=== PATIENT | female | born 1960 | race Caucasian/White ===

== ENCOUNTER 2018-04-29 19:38 | Emergency (ER) | payer OTHER, MEDICAID ==
[~2018-04-29] VITALS: Ht 165.1 cm; Wt 91.2 kg
[2018-04-29 19:47] VITALS: Ht 165.1 cm; Wt 91.2 kg
[2018-04-29 21:04] VITALS: BP 129/71
== END 2018-04-29 21:05 | disposition home or self-care (01) ==
LOC: ED 19:38
DX: M25.561 Pain in right knee (principal); M19.90 Unspecified osteoarthritis, unspecified site
CPT/HCPCS: J1885; Q0092

== ENCOUNTER 2018-05-06 15:09 | Emergency (ER) | payer OTHER, MEDICAID ==
[~2018-05-06] VITALS: Ht 152.4 cm; Wt 95.7 kg
[2018-05-06 15:21] VITALS: Ht 152.4 cm; Wt 95.7 kg
[2018-05-06 16:45] VITALS: BP 134/82
== END 2018-05-06 16:45 | disposition home or self-care (01) ==
LOC: ED 15:09
DX: J18.9 Pneumonia, unspecified organism (principal)
CPT/HCPCS: J0696

== ENCOUNTER 2018-05-09 14:52 | Inpatient (IN) | payer OTHER, MEDICAID ==
[~2018-05-09] VITALS: Ht 152.4 cm; Wt 94.3 kg
[2018-05-09 15:00] VITALS: Ht 152.4 cm; Wt 94.3 kg
[2018-05-09 17:22] LABS: BASOPHIL % 0.4 % (0-2); RED CELL DISTRIBUTION WIDTH 14.3 % (11.5-14.5)
[2018-05-09 17:31] LABS: CALCIUM 8.8 mg/dL (8.5-10.1); CARBON DIOXIDE 28.1 mmol/L (21-32); CHLORIDE SERUM 104 mmol/L (98-107); CREATININE SERUM 0.7 mg/dL (0.6-1.0); GFR1 > 60 mL/min; GLUCOSE SERUM 80 mg/dL (74-106); PLATELET COUNT 457 x10^3mcL (130-400); POTASSIUM SERUM 3.4 mmol/L (3.5-5.1); SODIUM SERUM 139 mmol/L (136-145)
[2018-05-09 17:50] LABS: ALKALINE PHOSPHATASE 116 U/L (46-116); ALT/SGPT 45 U/L (14-59); AST/SGOT 27 U/L (15-37); BILIRUBIN TOTAL 0.37 mg/dL (0.20-1.00)
[2018-05-09 17:51] LABS: ALBUMIN 3.3 g/dL (3.4-5.0); TOTAL PROTEIN, SERUM 8.3 g/dL (6.4-8.2)
[2018-05-09 18:08] LABS: CK-MB 0.6 ng/mL (0-3.6)
[2018-05-09] MEDS ORDERED: VIBRAMYCIN HYC100 MG PO (18:19)
[2018-05-09 18:28] LABS: microscopic required? NO
[2018-05-09 18:28] LABS: FREE T4 1.19 ng/dL (0.76-1.46); FREE THYROXINE INDEX 3.7 ug/dL (1.4-4.5); T4(THYROXINE) 11.8 ug/dL (4.7-13.3)
[2018-05-09 18:31] LABS: MAGNESIUM 2.2 mg/dL (1.8-2.4); PHOSPHOROUS 3.7 mg/dL (2.5-4.9)
[2018-05-09 18:32] LABS: CHOLESTEROL/HDL RATIO 4.4
[2018-05-09 18:33] LABS: urine erythrocyte NEGATIVE (NEGATIVE)
[2018-05-09 18:39] LABS: T3 TOTAL 1.54 ng/mL
[2018-05-09 18:42] LABS: AMPHETAMINE QUAL UR NONE DETECTED (See below)
[2018-05-09 18:56] VITALS: BP 133/67
[2018-05-09 20:00] VITALS: BP 133/67
[2018-05-09 21:15] VITALS: BP 116/66
[2018-05-10 05:40] VITALS: BP 118/63
[2018-05-10 06:03] LABS: BASOPHIL % 0.4 % (0-2); PLATELET COUNT 383 x10^3mcL (130-400)
[2018-05-10 06:32] LABS: CALCIUM 8.2 mg/dL (8.5-10.1); CARBON DIOXIDE 26.8 mmol/L (21-32); CHLORIDE SERUM 109 mmol/L (98-107); CREATININE SERUM 0.8 mg/dL (0.6-1.0); GFR1 > 60 mL/min; GLUCOSE SERUM 98 mg/dL (74-106); PHOSPHOROUS 3.7 mg/dL (2.5-4.9); SODIUM SERUM 147 mmol/L (136-145)
[2018-05-10 09:00] VITALS: BP 107/65
[2018-05-10 17:15] VITALS: BP 113/55
[2018-05-10 21:00] VITALS: BP 111/61
[2018-05-11 05:29] VITALS: BP 118/56
[2018-05-11 08:09] VITALS: BP 140/62
[2018-05-11 17:50] VITALS: BP 113/42
[2018-05-11 20:52] VITALS: BP 98/58
[2018-05-12 06:22] LABS: CALCIUM 8.5 mg/dL (8.5-10.1); CARBON DIOXIDE 26.9 mmol/L (21-32); CHLORIDE SERUM 110 mmol/L (98-107); CREATININE SERUM 0.6 mg/dL (0.6-1.0); GFR1 > 60 mL/min; GLUCOSE SERUM 103 mg/dL (74-106); POTASSIUM SERUM 3.9 mmol/L (3.5-5.1); SODIUM SERUM 146 mmol/L (136-145)
[2018-05-12 06:28] LABS: BASOPHIL % 0.3 % (0-2); PLATELET COUNT 363 x10^3mcL (130-400); RED CELL DISTRIBUTION WIDTH 14.5 % (11.5-14.5)
[2018-05-12 06:32] VITALS: BP 117/62
[2018-05-12 08:10] VITALS: BP 129/60
[2018-05-12 12:07] VITALS: BP 110/60
[2018-05-12] MEDS ORDERED: LEVAQUIN750 MG PO (13:18)
== END 2018-05-12 14:50 | disposition home or self-care (01) | DRG 194 ==
LOC: ED 14:52 → MU 17:49 → ED 18:35 → MU 18:50
PROVIDERS: Emergency Medicine; Internal Medicine
DX: J18.9 Pneumonia, unspecified organism (principal); E44.0 Moderate protein-calorie malnutrition; E87.0 Hyperosmolality and hypernatremia; Z68.41 Body mass index [BMI] 40.0-44.9, adult; I10 Essential (primary) hypertension; E66.01 Morbid (severe) obesity due to excess calories; E78.5 Hyperlipidemia, unspecified; G47.33 Obstructive sleep apnea (adult) (pediatric); J45.909 Unspecified asthma, uncomplicated; Z90.49 Acquired absence of other specified parts of digestive tract; Z98.891 History of uterine scar from previous surgery; E87.6 Hypokalemia; E78.00 Pure hypercholesterolemia, unspecified; M19.90 Unspecified osteoarthritis, unspecified site; Z83.3 Family history of diabetes mellitus; Z82.49 Family history of ischemic heart disease and other diseases of the circulatory system; R73.03 Prediabetes; D47.3 Essential (hemorrhagic) thrombocythemia
CPT/HCPCS: 83880; 84439; J0456; J0696; J1644; J1956; J7040; J7620; Q0092

== ENCOUNTER 2018-05-19 20:34 | Emergency (ER) | payer OTHER, MEDICAID ==
[~2018-05-19 20:34] MED LIST: LEVAQUIN750 MG PO; VIBRAMYCIN HYC100 MG PO
[2018-05-19 22:22] VITALS: BP 140/90
== END 2018-05-19 22:18 | disposition home or self-care (01) ==
LOC: ED 20:34
DX: T38.0X5A Adverse effect of glucocorticoids and synthetic analogues, initial encounter (principal); J18.9 Pneumonia, unspecified organism; Y92.89 Other specified places as the place of occurrence of the external cause

== ENCOUNTER 2018-05-21 16:58 | Emergency (ER) | payer OTHER, MEDICAID ==
[~2018-05-21] VITALS: Ht 152.4 cm; Wt 95.0 kg
[2018-05-21 17:08] VITALS: Ht 152.4 cm; Wt 95.0 kg
[2018-05-21 19:23] VITALS: BP 136/104
== END 2018-05-21 19:23 | disposition home or self-care (01) ==
LOC: ED 16:58
DX: J98.01 Acute bronchospasm (principal)
CPT/HCPCS: J7620; Q0092

== ENCOUNTER 2018-05-26 21:12 | Emergency (ER) | payer OTHER, MEDICAID ==
[~2018-05-26] VITALS: Ht 152.4 cm; Wt 93.4 kg
[2018-05-26 21:13] VITALS: Ht 152.4 cm; Wt 93.4 kg
[2018-05-26 22:14] LABS: BASOPHIL % 0.8 % (0-2); PLATELET COUNT 382 x10^3mcL (130-400)
[2018-05-26 22:30] LABS: CALCIUM 8.9 mg/dL (8.5-10.1); CARBON DIOXIDE 23.9 mmol/L (21-32); CHLORIDE SERUM 104 mmol/L (98-107); CREATININE SERUM 0.8 mg/dL (0.6-1.0); GFR1 > 60 mL/min; GLUCOSE SERUM 96 mg/dL (74-106); POTASSIUM SERUM 3.3 mmol/L (3.5-5.1); SODIUM SERUM 139 mmol/L (136-145)
[2018-05-26 22:35] LABS: ALKALINE PHOSPHATASE 95 U/L (46-116); ALT/SGPT 29 U/L (14-59); AST/SGOT 19 U/L (15-37); BILIRUBIN TOTAL 0.4 mg/dL (0.20-1.00); TOTAL PROTEIN, SERUM 7.9 g/dL (6.4-8.2)
[2018-05-26 22:36] LABS: ALBUMIN 3.2 g/dL (3.4-5.0)
[2018-05-26 23:49] VITALS: BP 138/78
== END 2018-05-26 23:49 | disposition home or self-care (01) ==
LOC: ED 21:12
PROVIDERS: Emergency Medicine
DX: J40 Bronchitis, not specified as acute or chronic (principal); M54.2 Cervicalgia; R11.2 Nausea with vomiting, unspecified
CPT/HCPCS: 83880; J7030; J7613; J7644; Q0092

== ENCOUNTER 2018-06-16 10:22 | Emergency (ER) | payer OTHER, MEDICAID ==
[~2018-06-16] VITALS: Ht 152.4 cm; Wt 92.1 kg
[2018-06-16 10:49] VITALS: Ht 152.4 cm; Wt 92.1 kg
[2018-06-16 12:35] LABS: BASOPHIL % 0.6 % (0-2); RED CELL DISTRIBUTION WIDTH 13.7 % (11.5-14.5)
[2018-06-16 12:54] LABS: PLATELET COUNT 411 x10^3mcL (130-400)
[2018-06-16 13:06] LABS: ALKALINE PHOSPHATASE 99 U/L (46-116); ALT/SGPT 29 U/L (14-59); AST/SGOT 17 U/L (15-37); BILIRUBIN TOTAL 0.68 mg/dL (0.20-1.00); CALCIUM 8.7 mg/dL (8.5-10.1); CARBON DIOXIDE 27.3 mmol/L (21-32); CHLORIDE SERUM 106 mmol/L (98-107); CREATININE SERUM 0.7 mg/dL (0.6-1.0); GFR1 > 60 mL/min; GLUCOSE SERUM 91 mg/dL (74-106); SODIUM SERUM 141 mmol/L (136-145); TOTAL PROTEIN, SERUM 7.7 g/dL (6.4-8.2)
[2018-06-16 13:13] LABS: ALBUMIN 3.3 g/dL (3.4-5.0); POTASSIUM SERUM 2.9 mmol/L (3.5-5.1)
[2018-06-16 15:14] VITALS: BP 158/89
== END 2018-06-16 15:14 | disposition home or self-care (01) ==
LOC: ED 10:22
PROVIDERS: Emergency Medicine
DX: J20.9 Acute bronchitis, unspecified (principal); Z90.49 Acquired absence of other specified parts of digestive tract; Z90.710 Acquired absence of both cervix and uterus
CPT/HCPCS: 36600; 83880; 85378; J7030; J7613; J7644; Q9967

== ENCOUNTER 2018-07-02 16:17 | Emergency (ER) | payer OTHER, MEDICAID ==
[~2018-07-02] VITALS: Ht 152.4 cm; Wt 92.5 kg
[2018-07-02 16:28] VITALS: BP 145/103; Ht 152.4 cm; Wt 92.5 kg
== END 2018-07-02 17:52 | disposition home or self-care (01) ==
LOC: ED 16:17
DX: S29.011A Strain of muscle and tendon of front wall of thorax, initial encounter (principal); J06.9 Acute upper respiratory infection, unspecified; N83.209 Unspecified ovarian cyst, unspecified side; Z98.890 Other specified postprocedural states; X58.XXXA Exposure to other specified factors, initial encounter; Y93.89 Activity, other specified; Y92.89 Other specified places as the place of occurrence of the external cause; Y99.8 Other external cause status
CPT/HCPCS: J1885; Q0092; Q0162

== ENCOUNTER 2018-07-09 22:34 | Emergency (ER) | payer OTHER, MEDICAID ==
[~2018-07-09] VITALS: Ht 152.4 cm; Wt 93.0 kg
[2018-07-09 22:38] VITALS: Ht 152.4 cm; Wt 93.0 kg
[2018-07-10 00:21] LABS: BASOPHIL % 0.2 % (0-2); PLATELET COUNT 369 x10^3mcL (130-400); RED CELL DISTRIBUTION WIDTH 14.2 % (11.5-14.5)
[2018-07-10 00:40] LABS: ALKALINE PHOSPHATASE 112 U/L (46-116); ALT/SGPT 36 U/L (14-59); AST/SGOT 23 U/L (15-37); BILIRUBIN TOTAL 0.3 mg/dL (0.20-1.00); CALCIUM 8.9 mg/dL (8.5-10.1); CHLORIDE SERUM 106 mmol/L (98-107); CREATININE SERUM 0.8 mg/dL (0.6-1.0); GFR1 > 60 mL/min; GLUCOSE SERUM 109 mg/dL (74-106); SODIUM SERUM 143 mmol/L (136-145); TOTAL PROTEIN, SERUM 7.4 g/dL (6.4-8.2)
[2018-07-10 00:45] LABS: POTASSIUM SERUM 2.9 mmol/L (3.5-5.1)
[2018-07-10 01:18] LABS: UA SPECIFIC GRAVITY 1.025 (1.005-1.035); microscopic required? YES; urine erythrocyte TRACE (NEGATIVE)
[2018-07-10 02:38] VITALS: BP 121/50
== END 2018-07-10 02:38 | disposition home or self-care (01) ==
LOC: ED 22:34
PROVIDERS: Emergency Medicine
DX: J18.9 Pneumonia, unspecified organism (principal); Z98.890 Other specified postprocedural states
CPT/HCPCS: 36415; 83880; 87804; J7620

== ENCOUNTER 2018-07-17 12:19 | Inpatient (IN) | payer OTHER, MEDICAID | END 2018-07-21 16:56 | disposition home or self-care (01) | LOC: ED 12:19 → MU 18:21 → ED 12:19 → MU 18:21 → ED 12:19 → MU 18:21 → ED 12:19 → MU 18:21 → ED 12:19 → MU 18:21 → ED 12:19 → MU 18:21 → ED 12:19 → MU 18:21 → ED 12:19 → MU 18:21 | DX: J69.0 Pneumonitis due to inhalation of food and vomit (principal); E87.6 Hypokalemia; E78.5 Hyperlipidemia, unspecified; E66.9 Obesity, unspecified; Z68.37 Body mass index [BMI] 37.0-37.9, adult ==

== ENCOUNTER 2018-07-31 10:28 | Emergency (ER) | payer OTHER, MEDICAID ==
[~2018-07-31] VITALS: Ht 152.4 cm; Wt 69.4 kg
[~2018-07-31 10:28] MED LIST changes: +DIFLUCAN150 MG PO; +PROMETHAZI6.25 MG/5 PO
[2018-07-31 10:32] VITALS: Ht 152.4 cm; Wt 69.4 kg
[2018-07-31 13:57] VITALS: BP 130/86
== END 2018-07-31 13:57 | disposition home or self-care (01) ==
LOC: ED 10:28
DX: J98.01 Acute bronchospasm (principal); E78.00 Pure hypercholesterolemia, unspecified; N83.209 Unspecified ovarian cyst, unspecified side; Z98.890 Other specified postprocedural states
CPT/HCPCS: 87804; J7613; J7644

== ENCOUNTER 2018-08-04 15:27 | Emergency (ER) | payer OTHER, MEDICAID ==
[~2018-08-04] VITALS: Ht 152.4 cm; Wt 72.6 kg
[2018-08-04 15:39] VITALS: Ht 152.4 cm; Wt 72.6 kg
[2018-08-04 17:51] LABS: BASOPHIL % 0.5 % (0-2); PLATELET COUNT 367 x10^3mcL (130-400)
[2018-08-04 17:52] LABS: RED CELL DISTRIBUTION WIDTH 14.8 % (11.5-14.5)
[2018-08-04 18:10] LABS: ALBUMIN 3.4 g/dL (3.4-5.0); ALKALINE PHOSPHATASE 79 U/L (46-116); ALT/SGPT 29 U/L (14-59); AST/SGOT 21 U/L (15-37); BILIRUBIN TOTAL 0.3 mg/dL (0.20-1.00); CALCIUM 9.3 mg/dL (8.5-10.1); CARBON DIOXIDE 28.8 mmol/L (21-32); CHLORIDE SERUM 101 mmol/L (98-107); CREATININE SERUM 0.7 mg/dL (0.6-1.0); GFR1 > 60 mL/min; GLUCOSE SERUM 86 mg/dL (74-106); SODIUM SERUM 137 mmol/L (136-145); TOTAL PROTEIN, SERUM 7.9 g/dL (6.4-8.2)
[2018-08-04 19:46] VITALS: BP 161/100
== END 2018-08-04 19:46 | disposition home or self-care (01) ==
LOC: ED 15:27
PROVIDERS: Emergency Medicine
DX: J18.9 Pneumonia, unspecified organism (principal); J44.9 Chronic obstructive pulmonary disease, unspecified; E78.00 Pure hypercholesterolemia, unspecified; Z90.49 Acquired absence of other specified parts of digestive tract; Z98.890 Other specified postprocedural states
CPT/HCPCS: 36415; 83880; J0696; J7512; Q0092

== ENCOUNTER 2018-08-05 17:18 | Emergency (ER) | payer OTHER, MEDICAID ==
[~2018-08-05] VITALS: Ht 152.4 cm; Wt 85.7 kg
[2018-08-05 17:23] VITALS: Ht 152.4 cm; Wt 85.7 kg
[2018-08-05 20:50] LABS: BASOPHIL % 0.5 % (0-2); PLATELET COUNT 390 x10^3mcL (130-400); RED CELL DISTRIBUTION WIDTH 13.6 % (11.5-14.5)
[2018-08-05 21:14] LABS: UA SPECIFIC GRAVITY 1.015 (1.005-1.035); microscopic required? YES; urine erythrocyte TRACE (NEGATIVE)
[2018-08-05 22:08] VITALS: BP 133/80
== END 2018-08-05 22:08 | disposition home or self-care (01) ==
LOC: ED 17:18
PROVIDERS: Emergency Medicine
DX: J98.01 Acute bronchospasm (principal); J45.901 Unspecified asthma with (acute) exacerbation; E78.00 Pure hypercholesterolemia, unspecified; N83.209 Unspecified ovarian cyst, unspecified side; Z90.49 Acquired absence of other specified parts of digestive tract; Z98.890 Other specified postprocedural states
CPT/HCPCS: 36415; 87804; Q0162

== ENCOUNTER 2018-08-09 01:06 | Emergency (ER) | payer OTHER, MEDICAID ==
[~2018-08-09] VITALS: Ht 152.4 cm; Wt 85.3 kg
[2018-08-09 01:11] VITALS: Ht 152.4 cm; Wt 85.3 kg
[2018-08-09 03:49] VITALS: BP 131/77
== END 2018-08-09 03:49 | disposition home or self-care (01) ==
LOC: ED 01:06
DX: R06.00 Dyspnea, unspecified (principal); T48.6X5A Adverse effect of antiasthmatics, initial encounter; J45.909 Unspecified asthma, uncomplicated; E78.00 Pure hypercholesterolemia, unspecified; N83.209 Unspecified ovarian cyst, unspecified side; Z90.49 Acquired absence of other specified parts of digestive tract; Y92.89 Other specified places as the place of occurrence of the external cause; Z98.890 Other specified postprocedural states
CPT/HCPCS: J2060; Q0162

== ENCOUNTER 2018-08-09 17:58 | Emergency (ER) | payer OTHER, MEDICAID ==
[~2018-08-09] VITALS: Ht 152.4 cm; Wt 84.8 kg
[2018-08-09 18:12] VITALS: Ht 152.4 cm; Wt 84.8 kg
[2018-08-09 19:24] VITALS: BP 147/88
== END 2018-08-09 19:23 | disposition home or self-care (01) ==
LOC: ED 17:58
DX: K29.70 Gastritis, unspecified, without bleeding (principal); J45.909 Unspecified asthma, uncomplicated; N83.209 Unspecified ovarian cyst, unspecified side; Z90.49 Acquired absence of other specified parts of digestive tract; Z98.890 Other specified postprocedural states; E78.00 Pure hypercholesterolemia, unspecified

== ENCOUNTER 2018-08-14 08:59 | Emergency (ER) | payer OTHER, MEDICAID ==
[~2018-08-14] VITALS: Ht 152.4 cm; Wt 83.5 kg
[2018-08-14 10:18] VITALS: BP 142/80
== END 2018-08-14 10:37 | disposition home or self-care (01) ==
LOC: ED 08:59
DX: J20.9 Acute bronchitis, unspecified (principal); J45.909 Unspecified asthma, uncomplicated; E78.00 Pure hypercholesterolemia, unspecified; Z90.49 Acquired absence of other specified parts of digestive tract; Z98.890 Other specified postprocedural states
CPT/HCPCS: J1885

== ENCOUNTER 2018-08-17 07:31 | Emergency (ER) | payer OTHER, MEDICAID ==
[~2018-08-17] VITALS: Ht 152.4 cm; Wt 83.9 kg
[2018-08-17 07:37] VITALS: Ht 152.4 cm; Wt 83.9 kg
[2018-08-17 10:13] VITALS: BP 142/75
== END 2018-08-17 10:13 | disposition home or self-care (01) ==
LOC: ED 07:31
DX: J45.909 Unspecified asthma, uncomplicated (principal); E78.00 Pure hypercholesterolemia, unspecified; Z98.890 Other specified postprocedural states; Z90.49 Acquired absence of other specified parts of digestive tract
CPT/HCPCS: J1100; J7512; J7613; J7644

== ENCOUNTER 2018-08-18 17:27 | Emergency (ER) | payer OTHER, MEDICAID ==
[~2018-08-18] VITALS: Ht 152.4 cm; Wt 81.6 kg
[2018-08-18 17:41] VITALS: Ht 152.4 cm; Wt 81.6 kg
[2018-08-18 21:14] VITALS: BP 149/84
== END 2018-08-18 21:14 | disposition home or self-care (01) ==
LOC: ED 17:27
DX: J45.909 Unspecified asthma, uncomplicated (principal); F41.9 Anxiety disorder, unspecified; R03.0 Elevated blood-pressure reading, without diagnosis of hypertension; E78.00 Pure hypercholesterolemia, unspecified; Z90.49 Acquired absence of other specified parts of digestive tract
CPT/HCPCS: J2060; J7613

== ENCOUNTER 2018-08-24 19:32 | Emergency (ER) | payer OTHER, MEDICAID ==
[~2018-08-24] VITALS: Ht 157.5 cm; Wt 80.7 kg
[2018-08-24 19:34] VITALS: Ht 157.5 cm; Wt 80.7 kg
[2018-08-24 21:10] VITALS: BP 145/90
== END 2018-08-24 21:10 | disposition home or self-care (01) ==
LOC: ED 19:32
DX: J44.9 Chronic obstructive pulmonary disease, unspecified (principal); E78.00 Pure hypercholesterolemia, unspecified; F41.9 Anxiety disorder, unspecified; F32.9 Major depressive disorder, single episode, unspecified; Z90.49 Acquired absence of other specified parts of digestive tract; Z98.890 Other specified postprocedural states
CPT/HCPCS: J2060

== ENCOUNTER 2018-08-30 12:19 | Emergency (ER) | payer OTHER, MEDICAID ==
[~2018-08-30] VITALS: Ht 152.4 cm; Wt 78.5 kg
[2018-08-30 12:33] VITALS: Ht 152.4 cm; Wt 78.5 kg
[2018-08-30 13:32] VITALS: BP 123/81
== END 2018-08-30 13:53 | disposition home or self-care (01) ==
LOC: ED 12:19
DX: J42 Unspecified chronic bronchitis (principal); J45.909 Unspecified asthma, uncomplicated; E78.00 Pure hypercholesterolemia, unspecified; N83.209 Unspecified ovarian cyst, unspecified side; Z98.890 Other specified postprocedural states; Z90.49 Acquired absence of other specified parts of digestive tract
CPT/HCPCS: J7620; Q0092

== ENCOUNTER 2018-09-16 13:51 | Inpatient (IN) | payer OTHER, MEDICAID ==
[~2018-09-16] VITALS: Ht 167.6 cm; Wt 75.3 kg
[2018-09-16 14:29] VITALS: Ht 167.6 cm; Wt 75.3 kg
--- NOTE | 2018-09-16 15:34 | NUR ---
PT IN ED FOR COUGH FOR "OVER A MONTH." STS DX WITH BRONCHITIS BY PCP. STS LIFTING CHIN UP AND NOW FEELING PHLEGM SLIDING DOWN THROAT, REPORTS CHOKING SENSATION. PT SPEAKING IN CLEAR FULL SENTENCES, SEEN PACING AROUND BED. PT ALSO STS "I DON'T KNOW IF I'M PANICKING." INSTRUCTED PT TO TAKE SLOW DEEP BREATHS.
[2018-09-16 16:50] LABS: BASOPHIL % 0.1 % (0-2); PLATELET COUNT 368 x10^3mcL (130-400)
[2018-09-16 16:51] LABS: RED CELL DISTRIBUTION WIDTH 15.9 % (11.5-14.5)
[2018-09-16 17:01] LABS: CALCIUM 9.1 mg/dL (8.5-10.1); CHLORIDE SERUM 110 mmol/L (98-107); CREATININE SERUM 0.7 mg/dL (0.6-1.0); GFR1 > 60 mL/min; GLUCOSE SERUM 99 mg/dL (74-106); POTASSIUM SERUM 3.3 mmol/L (3.5-5.1); SODIUM SERUM 148 mmol/L (136-145)
[2018-09-16 17:05] LABS: ALKALINE PHOSPHATASE 64 U/L (46-116); ALT/SGPT 29 U/L (14-59); AMYLASE 54 U/L (25-115); AST/SGOT 17 U/L (15-37); BILIRUBIN TOTAL 0.84 mg/dL (0.20-1.00); LIPASE 146 IU/L (73-393); TOTAL PROTEIN, SERUM 7.2 g/dL (6.4-8.2)
[2018-09-16 17:08] LABS: ALBUMIN 3.3 g/dL (3.4-5.0)
--- NOTE | 2018-09-16 17:10 | NUR ---
PT STANDING NEAR BED, TALKING ON CELL PHONE. RESP E/U. PT MEDICATED FOR NAUSEA.
[2018-09-16] MEDS ORDERED: FAMOTIDINE40 MG (17:41)
[2018-09-16] MEDS ORDERED: CARAFATE1 GM PO (17:42)
[2018-09-16] MEDS ORDERED: ZOLOFT25 MG PO (17:43)
[2018-09-16] MEDS ORDERED: MONTELUKAST SOD10 M1 (17:43)
[2018-09-16] MEDS ORDERED: ALPRAZOLAM XR0.5 M2 (17:43)
[2018-09-16] MEDS ORDERED: LEVOFLOXACIN500 M1 (17:44)
[2018-09-16] MEDS ORDERED: HYDROCHLOROTHIA25 MG (17:44)
--- NOTE | 2018-09-16 18:19 | NUR ---
MEDICATED PT FOR ANXIETY. PLEASE SEE EMAR.
--- NOTE | 2018-09-16 19:30 | NUR ---
REPORT GIVEN TO SURU RN TO ASSUME CARE OF PT.
[2018-09-16 19:34] LABS: MAGNESIUM 2.2 mg/dL (1.8-2.4); PHOSPHOROUS 2.7 mg/dL (2.5-4.9)
[2018-09-16 19:36] LABS: CHOLESTEROL/HDL RATIO 3.8
[2018-09-16 19:41] LABS: T3 TOTAL 1.3 ng/mL
[2018-09-16 19:42] VITALS: BP 135/73
[2018-09-16 19:43] VITALS: BP 135/73
--- NOTE | 2018-09-16 19:51 | NUR ---
RECEIVED PT FROM ED VIA EMILIANA. ORIENTED PT TO ROOM AND SURROUNDINGS .IV NOTED TO LAC PATENT AND INTACT. TELE 16 PLACED ON PT READING NSR. INSTRUCTED PT ON THE USE OF CALL LIGHT FOR ASSISTANCE. ENDORSED PT TO PRIMARY NURSE YOHAN
--- NOTE | 2018-09-16 19:55 | NUR ---
RECEIVED PT FROM ANNMARIE BARILLAS. PT AOX4. DENIES KAYE/DIZZINESS. TELE #16, NSR, HR 73. DENIES CP/PRESSURE. PULSES PALPABLE, NO EDEMA NOTED. LUNG DIMINISHED, ON RA. DENIES SOB/DIFFICULTY BREATHING. BOWEL SOUNDS ACTIVE. VOIDS FREELY. AMBULATORY. SKIN INTACT. IV TO LAC, INTACT AND PATENT. BED IN LOWEST POSITION. CALL LIGHT WITHIN REACH. WILL CONTINUE TO MONITOR.
[2018-09-16 20:14] LABS: FREE T4 1.33 ng/dL (0.76-1.46); FREE THYROXINE INDEX 4.1 ug/dL (1.4-4.5); T4(THYROXINE) 11.6 ug/dL (4.7-13.3)
--- NOTE | 2018-09-16 20:18 | NUR ---
PT REQUESTING MEDICATION FOR ANXIETY. DR. ECKERT PAGE GATED. AWAITING FURTHER ORDERS.
[2018-09-16 21:05] VITALS: BP 141/87
--- NOTE | 2018-09-16 22:12 | NUR ---
CALLED TO PTS ROOM BY RN TO ASSESS PATIENT AGAIN. PT SITTING UP EATING. ABLE TO SPEAK IN FULL SENTENCES. NAD NOTED. PT HAS PRODUCTIVE COUGH, PER PT WHITE/PALE YELLOW SECRETIONS. DEEP BREATHING AND COUGHING ENCOURAGED. PT HAS BILATERALLY CLEAR BREATHSOUNDS. PT ADVISED TO CALL IF SOB THROUGHOUT THE NIGHT.
--- NOTE | 2018-09-17 02:30 | NUR ---
PT RESTING IN BED. RR EVEN AND UNLABORED. NO ACUTE DISTRESS NOTED. CALL LIGHT WITHIN REACH. WILL CONTINUE TO MONITOR.
[2018-09-17 05:35] VITALS: BP 145/79
--- NOTE | 2018-09-17 05:43 | NUR ---
PT UNABLE TO COMPLETELY TAKE PO KLOR CON, DR. GARRETT NOTIFIED. PER DR. GARRETT WILL ORDER LIQUID PO KLOR CON. WILL CONTINUE TO MONITOR.
--- NOTE | 2018-09-17 06:05 | NUR ---
NOTIFIED PT OF NEED FOR URINE SAMPLE. URINE SAMPLE CUP PROVIDED.
--- NOTE | 2018-09-17 06:08 | NUR ---
PT C/O KAYE AND CP DUE TO TRYING TO "COUGH UP PHLEGM", PER PT SHE IS UNABLE TO "BRING IT UP". OFFERED PAIN MEDICATED. PT REFUSED.
[2018-09-17 06:38] LABS: BASOPHIL % 0.5 % (0-2); PLATELET COUNT 303 x10^3mcL (130-400)
[2018-09-17 06:39] LABS: CALCIUM 8.3 mg/dL (8.5-10.1); CARBON DIOXIDE 28.9 mmol/L (21-32); CHLORIDE SERUM 109 mmol/L (98-107); CREATININE SERUM 0.6 mg/dL (0.6-1.0); GFR1 > 60 mL/min; GLUCOSE SERUM 83 mg/dL (74-106); MAGNESIUM 2.1 mg/dL (1.8-2.4); PHOSPHOROUS 4.6 mg/dL (2.5-4.9); SODIUM SERUM 146 mmol/L (136-145)
[2018-09-17 06:46] LABS: POTASSIUM SERUM 2.8 mmol/L (3.5-5.1); RED CELL DISTRIBUTION WIDTH 16.4 % (11.5-14.5)
--- NOTE | 2018-09-17 06:54 | NUR ---
K 2.8. DR. GARRETT NOTIFIED.
--- NOTE | 2018-09-17 07:50 | NUR ---
PT RECIEVED SLEEPING WITH HOB ELEVATED. IV AT LAC WITH NO REDNESS OR SWELLING, INFUSING WELL. BED IN LOWEST POSITION WITH CALL LIGHT WITHIN REACH. WILL CONTINUE TO MONITOR.
[2018-09-17 09:16] VITALS: BP 129/77
[2018-09-17 11:03] LABS: microscopic required? NO
[2018-09-17 11:40] LABS: UA SPECIFIC GRAVITY <=1.005 (1.005-1.035); urine erythrocyte NEGATIVE (NEGATIVE)
--- NOTE | 2018-09-17 12:40 | NUR ---
PT RESTING IN BED. REPORTED MILD CHEST PAIN BUT TOLERABLE, ACHING AND NON-RADIATING. STATED MOUTH FELT DRY AND WAS HAVING TROUBLE EXPELLING PHLEGM. ENCOURAGED TO DRINK SMALL SIPS OF WATER AND TO COUGH TOLERATED. WILL CONTINUE TO MONITOR. NO REDNESS OR SWELLING AT IV SITE, INFUSING WELL. BED IN LOWEST POSITION WITH CALL LIGHT WITHIN REACH. WILL CONTINUE TO MONITOR.
[2018-09-17 12:51] LABS: AMPHETAMINE QUAL UR NONE DETECTED (See below)
[2018-09-17 13:02] VITALS: BP 134/59
--- NOTE | 2018-09-17 14:47 | NUR ---
OBTAINED INFORMED CONSENT FROM PT. BECAME ANXIOUS REGARDING PROCEDURE AND WITH TAKING SCHEDULED MEDS FOR PROCEDURE PREP, STATED "I CAN'T DO THIS. I CAN'T DRINK THIS." DR. CALVILLO PAGED. WILL CONTINUE TO MONITOR.
--- NOTE | 2018-09-17 17:24 | NUR ---
PT REFUSED BOWEL PREP MEDICATIONS. REEDUCATED ON PURPOSE OF MEDICATIONS. PT CONTINUED TO REFUSE AT THIS TIME. DR. CALVILLO AWARE AND SPEAKING WITH PT AT BEDSIDE.
--- NOTE | 2018-09-17 17:50 | NUR ---
PT CONTINUES TO HAVE DIFFICULTY TAKING BOWL PREP MEDICATIONS. REEDUCATED ON PURPOSE OF MEDICATIONS. ENCOURAGED TO CONSUME WITH DINNER, PT PROCEEDED TO TAKE SMALL PORTIONS AT A TIME. PT SENIOR LIVING DONE WITH FIRST BOTTLE OF SUPREP. NO REDNESS OR SWELLING AT IV SITE, INFUSING WELL. BED IN LOWEST POSITION AND CALL LIGHT WITHIN REACH. WILL ENDORSE TO OMCOMING NURSE.
[2018-09-17 18:00] VITALS: BP 134/66
--- NOTE | 2018-09-17 19:24 | NUR ---
RECEIVED PT FROM PREVIOUS SHIFT NURSE. PT AOX4. DENIES KAYE/DIZZINESS. TELE #16, NSR, HR 82. DENIES CP/PRESSURE. PULSES PALPABLE, NO EDEMA NOTED. LUNG SOUNDS DIMINISHED, ON RA. DENIES SOB/DIFFICULTY BREATHING. BOWEL SOUNDS ACTIVE. VOIDS FREELY. AMBULATORY. SKIN INTACT. IV TO LAC, INTACT AND PATENT. FIRST DOSE OF BOWEL PREP AT PT BEDSIDE, REMINDED PT TO CONTINUE TO DRINK BOWEL PREP. PT AGREES. BED IN LOWEST POSITION. CALL LIGHT WITHIN REACH. WILL CONTINUE TO MONITOR.
[2018-09-17 20:17] VITALS: BP 123/65
--- NOTE | 2018-09-18 01:01 | NUR ---
PT REPORTS LIQUID STOOL YELLOWISH BROWN. INFORMED PT THAT SHE NEEDS TO CONTINUE TO TAKE BOWEL PREP AND CONTINUE TO USE RESTROOM. PT STATES IT IS DIFFICULT FOR HER TO SWALLOW AND IT DOES NOT TASTE GOOD. ENCOURAGED PT TO CONTINUE TO TAKE MEDICATIONS NEEDED FOR PROCEDURES IN AM. PT VERBALIZED UNDERSTANDING THAT IF STOOL IS NOT CLEAR, PROCEDURE WILL BE POSTPONED. WILL CONTINUE TO MONITOR.
--- NOTE | 2018-09-18 01:56 | NUR ---
SECOND BOTTLE OF BOWEL PREP PROVIDED. INFORMED PT IMPORTANCE OF DRINKING WHOLE CONTAINER. WILL CONTINUE TO MONITOR.
--- NOTE | 2018-09-18 03:50 | NUR ---
SECOND DOSE OF BOWEL PREP STILL FULL IN CUP ON PT BEDSIDE TABLE, INFORMED PT IMPORTANCE OF COMPLETING SECOND DOSE. PT VERBALIZES UNDERSTANDING. WILL CONTINUE TO MONITOR.
[2018-09-18 04:33] VITALS: BP 129/69
--- NOTE | 2018-09-18 05:48 | NUR ---
AT THIS TIME PT HAS COMPLETED ABOUT 25% OF SECOND DOSE OF BOWEL PREP. INFORMED PT OF IMPORTANCE OF COMPLETING MEDICATION. PT STATES SHE IS UNABLE TO. PT STATES STOOL IS NOW SLIGHTLY BROWNISH YELLOW AND CLEAR.
--- NOTE | 2018-09-18 07:45 | NUR ---
PATIENT SLEEPING IN BED, AROUSABLE. PATIENT DENIES CHEST PAIN. STATES SHE FEELS SOMETHING IN THROAT MAKING IT DIFFICULT TO SWALLOW FLDS. TELE MONITOR IN PLACE. 1/2 NS WITH KCL INFUSING TO LAC AT 83ML/HR, NO REDNESS, SWELLING OR PAIN NOTED. INSTRUCTED PATIENT TO CALL FOR ASSISTANCE WHEN NEEDED, CALL LIGHT WITHIN REACH, BED IN LOW POSITION. WILL CONTINUE TO MONITOR FOR CHANGES.
[2018-09-18 08:50] VITALS: BP 135/80
--- NOTE | 2018-09-18 08:58 | NUR ---
RT AT BEDSIDE FOR BREATHING TREATMENT.
--- NOTE | 2018-09-18 09:15 | NUR ---
PATIENT WENT DOWN FOR EGD. PATIENT IS SALINE. TELE MONITOR MADE AWARE.
--- NOTE | 2018-09-18 12:00 | NUR ---
PATIENT ARRIVED FROM GI LAB VIA GURNEY. PATIENT VITAL SIGNS STABLE, BP: 148/72, HR 78, MAP (97), RR 17 TEMP 97.6. PATIENT DENIES PAIN AT THIS TIME. CALL LIGHT WITHIN REACH, BED IN LOW POSITION, SIDE RAILSX2, WILL CONTINUE TO MONITOR.
[2018-09-18 12:05] VITALS: BP 148/72
[2018-09-18 13:05] LABS: BASOPHIL % 0.5 % (0-2); PLATELET COUNT 325 x10^3mcL (130-400)
[2018-09-18 13:07] LABS: RED CELL DISTRIBUTION WIDTH 16.4 % (11.5-14.5)
[2018-09-18 13:14] LABS: CALCIUM 8.4 mg/dL (8.5-10.1); CARBON DIOXIDE 29.4 mmol/L (21-32); CHLORIDE SERUM 107 mmol/L (98-107); CREATININE SERUM 0.7 mg/dL (0.6-1.0); GFR1 > 60 mL/min; GLUCOSE SERUM 73 mg/dL (74-106); MAGNESIUM 2.1 mg/dL (1.8-2.4); PHOSPHOROUS 4.6 mg/dL (2.5-4.9); POTASSIUM SERUM 3.7 mmol/L (3.5-5.1); SODIUM SERUM 144 mmol/L (136-145)
[2018-09-18] MEDS ORDERED: LIPI10 PO (13:22)
[2018-09-18] MEDS ORDERED: ELA10 PO (13:23)
[2018-09-18] MEDS ORDERED: MUCINEX600 MG PO (13:23)
[2018-09-18] MEDS ORDERED: COL100 PO (13:24)
[2018-09-18] MEDS ORDERED: PRI20 PO (13:25)
[2018-09-18 17:25] VITALS: BP 119/70
--- NOTE | 2018-09-18 18:15 | NUR ---
PATIENT STATES FEELING ANXIOUS AND SAYS SHE STILL FEELS LIKE SOMETHING IN HER THROAT. PATIENT REQUEST WANTING TO SPEAK TO DOCTOR PRIOR TO DISCHARGE. SHE STATES SHE DOES NOT FEEL COMFORTABLE GOING HOME. PAGED THE MOWING MACHINE OPERATOR DR. WALLER, SHE WILL SPEAK WITH PATIENT, PATIENT ALSO RESQUESTED SOMETHING FOR ANXIETY. DR ABURTO AWARE AND WILL PLACE IN A NEW ORDER. NO ACUTE CHANGES THROUGH OUT SHIFT, PATIENT IS STABLE AT THIS TIME. WILL CONTINUE TO MONITOR PATIENT, CALL LIGHT WITHIN REACH. WILL ENDORSE REPORT TO NIGHT NURSE.
--- NOTE | 2018-09-18 19:05 | NUR ---
REPORT RECIEVED FROM DAY SHIFT RN. PATIENT WAS SEEN AND IS SITTING ON THE SIDE OF THE BED. ON ROOM AIR. BREATHING IS EVEN AND UNLABORED. NO SOB OR DISTRESS NOTED. NO C/O OF PAIN. DENIES CHEST PAIN. NO N/V NOTED. PATIENT STATES SHE HAS MUCUS BUILD UP AND FEELS ANXIOUS. XANAX WAS ORDERED AND WILL BE ADMINSITERED PRESCRIBED. PATIENT HAS ORDERS TO BE DISCHARGED. COMFORT AND SAFETY MEASURES MAINTAINED. BED IS LOCKED AND IN THE LOWEST POSITION. SIDE RAILS UP X2. CALL LIGHT IS WITHIN REACH. INSTRUCTED PATIENT TO CALL FOR ASSISTANCE. WILL CONTINUE TO MONITOR.
--- NOTE | 2018-09-18 19:20 | NUR ---
PATIENT WAS FEELING ANXIOUS, MEDICATED PATIENT WITH XANXA PER PROTOCOL (SEE EMAR). ENDORSED TO ANNMARIE NICOLE.
[2018-09-18 19:43] VITALS: BP 119/70
--- NOTE | 2018-09-18 20:10 | NUR ---
PATIENT IS UNSURE ABOUT BEING DISCHARGED. NOTIFIED DR. WALLER. SPOKE WITH THE PATIENT AND PATIENT ARGEED TO GO HOME. WILL PREPARE PAPERWORK.
--- NOTE | 2018-09-18 20:39 | NUR ---
PATIENT WAS DISCHARGED HOME. DISCHARGE PAPER WORK SIGNED AND EDUCATED WAS GIVEN. EDUCATED PATIENT ON MED PRESCRIPTIONS. PATIENT VERBALIZED UNDERSTADING. IV WAS REMOVED. CATHETER WAS INTACT. TELE MONITOR WAS REMOVED. ON ROOM AIR. NO SOB OR RESP DISTRESS NOTED. NO C/O OF PAIN. DENIES CHEST PAIN. CJ AKINS TOOK THE PATIENT HOME. VERFIED WITH , DINA OVER THE PHONE. TREVON SANDOVAL WHEELCHAIRED PATIENT TO THE LOBBY. PATIENT TOOK ALL OF HER BELONGINGS.
== END 2018-09-18 20:39 | disposition home or self-care (01) | DRG 348 ==
LOC: ED 13:51 → DU 17:59
PROVIDERS: Emergency Medicine; Internal Medicine Gastroenterology; ADMIT Internal Medicine
PROC: 0DB58ZX Excision of Esophagus, Via Natural or Artificial Opening Endoscopic, Diagnostic (ICD-10-PCS; principal; 2018-09-18 10:30)
PROC: 0DBC8ZZ Excision of Ileocecal Valve, Via Natural or Artificial Opening Endoscopic (ICD-10-PCS; 2018-09-18 10:30)
PROC: 0DB68ZX Excision of Stomach, Via Natural or Artificial Opening Endoscopic, Diagnostic (ICD-10-PCS; 2018-09-18 10:30)
PROC: 0DBH8ZZ Excision of Cecum, Via Natural or Artificial Opening Endoscopic (ICD-10-PCS; 2018-09-18 10:30)
DX: K21.9 Gastro-esophageal reflux disease without esophagitis (principal); E87.0 Hyperosmolality and hypernatremia; E44.0 Moderate protein-calorie malnutrition; K26.9 Duodenal ulcer, unspecified as acute or chronic, without hemorrhage or perforation; J42 Unspecified chronic bronchitis; E78.5 Hyperlipidemia, unspecified; K63.5 Polyp of colon; K25.9 Gastric ulcer, unspecified as acute or chronic, without hemorrhage or perforation; E87.8 Other disorders of electrolyte and fluid balance, not elsewhere classified; J45.909 Unspecified asthma, uncomplicated; K59.09 Other constipation; F41.9 Anxiety disorder, unspecified; K20.9 Esophagitis, unspecified; E87.6 Hypokalemia; I10 Essential (primary) hypertension; Z68.32 Body mass index [BMI] 32.0-32.9, adult; Z90.49 Acquired absence of other specified parts of digestive tract; Z98.891 History of uterine scar from previous surgery; Z82.49 Family history of ischemic heart disease and other diseases of the circulatory system; Z83.3 Family history of diabetes mellitus
CPT/HCPCS: 43235; 45378; 83880; 84439; C9113; J1200; J1610; J2060; J2250; J2310; J2765; J3010; J3480; J3490; J7030; J7620; Q0162

== ENCOUNTER 2018-12-04 22:51 | Emergency (ER) | payer MEDICAID ==
[~2018-12-04 22:51] MED LIST changes: +ALPRAZOLAM XR0.5 M2; +CARAFATE1 GM PO; +COL100 PO; +ELA10 PO; +FAMOTIDINE40 MG; +HYDROCHLOROTHIA25 MG; +LEVOFLOXACIN500 M1; +LIPI10 PO; +MONTELUKAST SOD10 M1; +MUCINEX600 MG PO; +PRI20 PO; +ZOLOFT25 MG PO
[2018-12-04 22:56] VITALS: Ht 152.4 cm
[2018-12-04 23:27] LABS: BASOPHIL % 0.4 % (0-2); PLATELET COUNT 342 x10^3mcL (130-400)
[2018-12-04 23:29] LABS: RED CELL DISTRIBUTION WIDTH 14.9 % (11.5-14.5)
[2018-12-04 23:37] LABS: CALCIUM 9.1 mg/dL (8.5-10.1); CARBON DIOXIDE 27.6 mmol/L (21-32); CHLORIDE SERUM 106 mmol/L (98-107); CREATININE SERUM 0.6 mg/dL (0.6-1.0); GFR1 > 60 mL/min; GLUCOSE SERUM 89 mg/dL (74-106); POTASSIUM SERUM 3.6 mmol/L (3.5-5.1); SODIUM SERUM 143 mmol/L (136-145)
[2018-12-04 23:41] LABS: ALKALINE PHOSPHATASE 101 U/L (46-116); ALT/SGPT 55 U/L (14-59); AST/SGOT 21 U/L (15-37); BILIRUBIN TOTAL 0.38 mg/dL (0.20-1.00); LIPASE 208 IU/L (73-393); TOTAL PROTEIN, SERUM 7.1 g/dL (6.4-8.2)
[2018-12-04 23:43] LABS: ALBUMIN 3.3 g/dL (3.4-5.0)
[2018-12-05 01:33] VITALS: BP 122/86
== END 2018-12-05 01:33 | disposition home or self-care (01) ==
LOC: ED 22:51
PROVIDERS: Emergency Medicine
DX: R10.13 Epigastric pain (principal); J45.909 Unspecified asthma, uncomplicated; E78.00 Pure hypercholesterolemia, unspecified; Z90.49 Acquired absence of other specified parts of digestive tract; Z98.890 Other specified postprocedural states
CPT/HCPCS: 36415; Q0162

== ENCOUNTER 2019-01-18 07:27 | Emergency (ER) | payer MEDICAID, OTHER ==
[~2019-01-18] VITALS: Ht 152.4 cm; Wt 81.2 kg
[2019-01-18 07:34] VITALS: Ht 152.4 cm; Wt 81.2 kg
[2019-01-18 07:57] LABS: BASOPHIL % 0.7 % (0-2); PLATELET COUNT 366 x10^3mcL (130-400); RED CELL DISTRIBUTION WIDTH 13.1 % (11.5-14.5)
[2019-01-18 08:21] LABS: CHLORIDE SERUM 107 mmol/L (98-107); CREATININE SERUM 0.6 mg/dL (0.6-1.0); GFR1 > 60 mL/min; GLUCOSE SERUM 88 mg/dL (74-106); POTASSIUM SERUM 3.6 mmol/L (3.5-5.1); SODIUM SERUM 144 mmol/L (136-145)
[2019-01-18 08:25] LABS: ALKALINE PHOSPHATASE 105 U/L (46-116); ALT/SGPT 22 U/L (14-59); AST/SGOT 11 U/L (15-37); BILIRUBIN TOTAL 0.29 mg/dL (0.20-1.00); LIPASE 216 IU/L (73-393); TOTAL PROTEIN, SERUM 7.2 g/dL (6.4-8.2)
[2019-01-18 08:26] LABS: ALBUMIN 3.2 g/dL (3.4-5.0)
[2019-01-18 09:55] VITALS: BP 129/71
== END 2019-01-18 09:55 | disposition home or self-care (01) ==
LOC: ED 07:27
PROVIDERS: Emergency Medicine
DX: R10.13 Epigastric pain (principal); J45.909 Unspecified asthma, uncomplicated; E78.00 Pure hypercholesterolemia, unspecified; Z90.49 Acquired absence of other specified parts of digestive tract; Z98.890 Other specified postprocedural states
CPT/HCPCS: 36415; Q0162